=== PATIENT | male | born 1935 | race Caucasian/White ===

== ENCOUNTER → 2021-02-22 | Outpatient (CLI) | payer MEDICARE, OTHER ==
[2021-02-22 11:23] LABS: HEMATOCRIT 45.4 % (42.0-52.0); HEMOGLOBIN 14.8 gm/dL (14.0-18.0); MCH 29.5 pg (26.0-34.0); MCHC 32.7 g/dL (28.0-37.0); MCV 90.3 fL (80.0-100.0); MPV 7.4 fl. (7.2-11.1); RBC 5.02 mil/uL (4.50-6.00); RDW-CV 13.3 % (10.5-14.5); WBC 7.1 thou/uL (4.0-11.0)
[2021-02-22 11:26] LABS: CALCIUM 9.3 mg/dL (8.5-10.1); CREATININE 1.5 mg/dL (0.6-1.3); POTASSIUM 4.8 mmol/L (3.5-5.1)
--- NOTE | 2021-02-22 12:23 | EKG ---
[place] [address] ELECTROCARDIOGRAM REPORT Name: CLEMENTEANDRY Room: [facility]#: [id number] Admission: 02/22/21 Attend Phys: Physician not on s Discharge: Date of : 37 Date of Service: 02/22/21 1128 Report #: [id number] THIS REPORT FOR: //name// [facility] Test Date: 2021-02-22 Test Time: 11:28:32 Pat Name: ANDRY CORNEJO Department: Room: Gender: Gis Developer: KORIN : 1935 Requested By: Physician staff Order Number: [id number] Reading MD: Nikolai Barahona Measurements Intervals [place] Rate: 101 P: 33 MS: 204 QRS: 99 QRSD: 92 T: -60 QT: 330 QTc: 428 Interpretive Statements Sinus tachycardia Multiple premature complexes, vent & supraven Right axis deviation Borderline ST depression, diffuse leads Abnormal T, consider ischemia, inferior leads No previous ECG available for comparison Electronically Signed On 02-22-2021 12:23:19 CDT by Nikolai Barahona [email or web address] <ELECTRONICALLY SIGNED> By: Nikolai Barahona MD, [facility] 02/22/21 1223 1128 1128 Nikolai Barahona MD, [facility] /EPI
[2021-02-23 02:06] LABS: GLYCOHEMOGLOBIN (HGB A1C) 6.7 % (4.8-5.6)
== END ==
LOC: M.LAB 10:50
DX: Z01.812 Encounter for preprocedural laboratory examination (principal); Z01.810 Encounter for preprocedural cardiovascular examination; I45.10 Unspecified right bundle-branch block; R00.0 Tachycardia, unspecified